=== PATIENT | female | born 1935 | race Caucasian/White ===

== ENCOUNTER 2019-05-04 09:52 | Observation (INO) | payer MEDICARE, BC ==
[2019-05-04] VITALS (14 sets, daily range): BP systolic 101–166; BP diastolic 43–82
[~2019-05-04] VITALS: Ht 149.9 cm; Wt 90.9 kg
[~2019-05-04 09:52] MED LIST: ATOR20TA66 PO; GLIP-126 PO; GLYB-97 PO; LEVO100T46 PO; LISI-232 PO; POTA20TA19 PO
[2019-05-04 12:21] LABS: BASOPHILS % (AUTO) 0.7 % (0-1); EOSINOPHILS # (AUTO) 0.1 X10'3 (0-0.9); EOSINOPHILS % (AUTO) 1.6 % (0-6); HEMATOCRIT 31.2 % (35.0-45.0); HEMOGLOBIN 10.4 g/dl (12.0-16.0); LYMPHOCYTES % (AUTO) 15.2 % (21-51); MEAN CORPUSCULAR HEMOGLOBIN 29.3 PG (27.0-31.0); MEAN CORPUSCULAR HGB CONC 33.4 g/dL (33.0-36.5); MEAN CORPUSCULAR VOLUME 87.6 FL (78-98); MEAN PLATELET VOLUME 8.8 FL (7.4-10.4); MONOCYTES # (AUTO) 0.5 X10'3 (0-0.9); MONOCYTES % (AUTO) 6.9 % (2-12); NEUTROPHILS % (AUTO) 75.6 % (42-75); PLATELET COUNT 216 X10'3 (140-440); RED BLOOD COUNT 3.56 X10'6 (4.20-5.60); RED CELL DISTRIBUTION WIDTH 15.7 % (11.5-14.5); WHITE BLOOD COUNT 6.6 X10'3 (4.5-11.0)
[2019-05-04 12:33] LABS: PARTIAL THROMBOPLASTIN TIME 34 SECONDS (22-32)
[2019-05-04 12:34] LABS: ALANINE AMINOTRANSFERASE 16 U/L (12-78); ALBUMIN 3.3 G/DL (3.4-5.0); ALBUMIN/GLOBULIN RATIO 0.8 (1.1-1.5); ALKALINE PHOSPHATASE 93 IU/L (46-116); ANION GAP 8 (8-16); ASPARTATE AMINO TRANSFERASE 18 U/L (10-37); BILIRUBIN,TOTAL 0.3 MG/DL (0.1-1.0); BLOOD UREA NITROGEN 49 MG/DL (7-18); BUN/CREATININE RATIO 30.1 (6.6-38.0); CHLORIDE 102 MMOL/L (99-107); CREATININE 1.63 MG/DL (0.40-0.90); GLUCOSE 149 MG/DL (70-104); SODIUM 139 MMOL/L (135-145); TOTAL CARBON DIOXIDE 28.6 MMOL/L (24-32); TOTAL PROTEIN 7.2 G/DL (6.4-8.2); eGFR 30 ML/MIN
[2019-05-04] MEDS ORDERED: pantoprazole 40 MG vial IV ONE (12:40)
[2019-05-04 13:29] LABS: CLARITY,URINE SLIGHTLY CLOUDY (Clear); COLOR,URINE YELLOW (Yellow); GLUCOSE, URINE NEGATIVE (Neg); KETONES,URINE NEGATIVE (Neg); LEUKOCYTE ESTERASE ,URINE SMALL (Neg); NITRITES, URINE NEGATIVE (Neg); OCCULT BLOOD,URINE MODERATE (Neg); PH,URINE 5.5 (4.8-8.0); PROTEIN,URINE NEGATIVE (Neg); UROBILINOGEN,URINE 0.2 E.U/dL (0.2-1.0)
[2019-05-04 13:49] LABS: UA COLLECTION TYPE CLN CATCH MIDSTREAM
[2019-05-04 13:53] LABS: SQUAMOUS EPITHELIAL CELL,UR MANY /LPF (FEW)
[2019-05-04] MEDS ORDERED: bisacodyl 10mg suppository rectal RC PRN (14:00)
[2019-05-04] MEDS ORDERED: metoclopramide 5 mg/ml inj IV PRN (14:00)
[2019-05-04] MEDS ORDERED: potassium CL 10mEq/100ml bag 100 ML IV PRN ×2 (14:00)
[2019-05-04] MEDS ORDERED: magnesium 4gm in 100ml NS 100 ML IV PRN (14:00)
[2019-05-04] MEDS ORDERED: acetaminophen 650mg rectal suppository RC PRN (14:00)
[2019-05-04] MEDS ORDERED: ondansetron/PF 4mg/2ml inj IV PRN (14:00)
[2019-05-04] MEDS ORDERED: magnesium hydroxide 30ml (MOM) UD suspension PO PRN (14:00)
[2019-05-04] MEDS ORDERED: acetaminophen 325mg tablet PO PRN ×2 (14:00)
[2019-05-04] MEDS ORDERED: magnesium Cl slow-release 64mg tablet PO PRN (14:00)
[2019-05-04] MEDS ORDERED: mag hydrox/Alum hydrox/simeth 30ml oral suspension PO PRN (14:00)
[2019-05-04] MEDS ORDERED: potassium Cl 20 mEq SR tablet PO PRN ×2 (14:00)
[2019-05-04] MEDS ORDERED: magnesium 2GM in 50ml NS 50 ML IV PRN (14:00)
[2019-05-04 14:03] LABS: BACTERIA,URINE 1+ /HPF (Neg); RENAL CELLS, URINE FEW /HPF; TRANSITIONAL EPI CELLS,URINE FEW /HPF
[2019-05-04 14:04] LABS: RBC,URINE NONE SEEN /HPF (0-2)
[2019-05-04] MEDS: normal saline 1000ml 1,000 ML IV SCH ×2 (14:13→14:14)
--- NOTE | 2019-05-04 14:25 | NUR ---
NPO PER PATIENT SINCE 07:30 WHEN HAD SOLID/FLUIDS.
[2019-05-04] MEDS ORDERED: RIVA20TA PO (15:17)
[2019-05-04] MEDS ORDERED: SOTA80TA PO (15:32)
--- NOTE | 2019-05-04 15:43 | NUR ---
Sabra RN receiving RN for pt was given SBAR report. Questions addressed. Pt will go to in-patient room after EGD which procedure is scheduled at 4pm. GI RN was given SBAR report and notified of pt being Antical for blood in which it can take a longer time for blood bank to determine unit in case patient needs blood transfusion. pt in wheelchair going to GI lab by GI RN.
[2019-05-04] MEDS ORDERED: MIDAZolam 5mg/5ml vial ONE (15:56)
[2019-05-04] MEDS ORDERED: fentaNYL/PF 50MCG/1 ML 2ML syringe ONE (15:56)
[2019-05-04] MEDS ORDERED: LIDOcaine Viscous 15ml cup ONE (15:56)
--- NOTE | 2019-05-04 15:56 | NUR ---
Patient in room ED 1. I have received report from FARIDA Palacios and had the opportunity to ask questions and assume patient care. Per ED RN, GI lab transporting pt for EGD directly from ER. Awaiting pt arrival on unit.
--- NOTE | 2019-05-04 18:33 | NUR ---
Patient in room PCU 3019. I have received report from Sabra. FARIDA and had the opportunity to ask questions and assume patient care.
--- NOTE | 2019-05-04 18:33 | NUR ---
Problems reprioritized. Patient report given, questions answered & plan of care reviewed with FARIDA Gambino. Pt has not arrived to the unit yet from EGD.
[2019-05-04 20:23] LABS: HEMOGLOBIN A1C 6.2 % (4.5-6.2)
[2019-05-04] MEDS ORDERED: temazepam 15mg capsule PO PRN (21:00)
[2019-05-04] MEDS: pantoprazole 40 MG vial IV SCH (22:07)
[2019-05-05 02:00] VITALS: BP 128/50
[2019-05-05] MEDS: normal saline 1000ml 1,000 ML IV SCH (04:18)
[2019-05-05 05:26] LABS: HEMATOCRIT 28.4 % (35.0-45.0); HEMOGLOBIN 9.6 g/dl (12.0-16.0); MEAN CORPUSCULAR HEMOGLOBIN 29.8 PG (27.0-31.0); MEAN CORPUSCULAR HGB CONC 33.7 g/dL (33.0-36.5); MEAN CORPUSCULAR VOLUME 88.4 FL (78-98); MEAN PLATELET VOLUME 9.1 FL (7.4-10.4); PLATELET COUNT 190 X10'3 (140-440); RED BLOOD COUNT 3.22 X10'6 (4.20-5.60); RED CELL DISTRIBUTION WIDTH 15.5 % (11.5-14.5); WHITE BLOOD COUNT 5.1 X10'3 (4.5-11.0)
[2019-05-05 05:38] LABS: ALBUMIN 2.8 G/DL (3.4-5.0); ANION GAP 8 (8-16); BLOOD UREA NITROGEN 42 MG/DL (7-18); CALCIUM 9.6 MG/DL (8.5-10.1); CHLORIDE 106 MMOL/L (99-107); CREATININE 1.45 MG/DL (0.40-0.90); GLUCOSE 57 MG/DL (70-104); MAGNESIUM 1.9 MG/DL (1.5-2.4); SODIUM 141 MMOL/L (135-145); eGFR 34 ML/MIN
[2019-05-05 05:40] LABS: POTASSIUM 4.1 MMOL/L (3.5-5.1)
[2019-05-05 05:43] LABS: PARTIAL THROMBOPLASTIN TIME 31 SECONDS (22-32)
[2019-05-05 06:00] VITALS: BP 126/51
--- NOTE | 2019-05-05 06:26 | NUR ---
Problems reprioritized. Patient report given, questions answered & plan of care reviewed with FARIDA Harris.
--- NOTE | 2019-05-05 06:59 | NUR ---
Patient in room PCU 3019. I have received report from Maki IQBAL and had the opportunity to ask questions and assume patient care. All patient's needs met at this time.
[2019-05-05] MEDS ORDERED: K and/or MAG REPLACEMENT MC SCH (08:00)
[2019-05-05] MEDS ORDERED: PANT-47 PO (08:52)
[2019-05-05 11:00] VITALS: BP 128/56
[2019-05-05] MEDS: pantoprazole 40 MG vial IV SCH (11:14)
[2019-05-05] MEDS ORDERED: pantoprazole 40mg Tablet.DR PO SCH (20:00)
[2019-05-07 11:48] LABS: OCCULT BLOOD STOOL POSITIVE (Neg)
== END 2019-05-05 12:28 | disposition home or self-care (01) ==
LOC: ER 09:52 → ED HOLD 14:00 → PCU 3S 17:27
PROVIDERS: ADMIT Family Medicine; ATTEND Family Medicine
DX: K29.81 Duodenitis with bleeding (principal); R19.5 Other fecal abnormalities; D50.0 Iron deficiency anemia secondary to blood loss (chronic); I48.91 Unspecified atrial fibrillation; E78.5 Hyperlipidemia, unspecified; I12.9 Hypertensive chronic kidney disease with stage 1 through stage 4 chronic kidney disease, or unspecified chronic kidney disease; E11.22 Type 2 diabetes mellitus with diabetic chronic kidney disease; N18.9 Chronic kidney disease, unspecified; E03.9 Hypothyroidism, unspecified; R09.02 Hypoxemia; M10.9 Gout, unspecified; Z85.42 Personal history of malignant neoplasm of other parts of uterus; Z90.710 Acquired absence of both cervix and uterus; Z90.49 Acquired absence of other specified parts of digestive tract; Z99.81 Dependence on supplemental oxygen; Z79.01 Long term (current) use of anticoagulants; Z79.84 Long term (current) use of oral hypoglycemic drugs; Z79.899 Other long term (current) drug therapy
CPT/HCPCS: 36415; 43239; 71045; 80048; 80053; 81001; 82272; 82948; 83036; 83735; 85025; 85027; 85610; 85730; 86870; 86880; 86885; 86900; 86901; 86905; 93005; 96374; 96376; 99284; C9113; G0378; J2250; J3010; J7030; 88305; 99152; A4620

== ENCOUNTER 2019-06-03 10:32 | Emergency (ER) | payer MEDICARE, BC ==
[~2019-06-03] VITALS: Ht 149.9 cm; Wt 89.5 kg
[~2019-06-03 10:32] MED LIST changes: -ATOR20TA66 PO; -GLYB-97 PO; +PANT-47 PO; +RIVA20TA PO; +SOTA80TA PO
[2019-06-03 10:39] VITALS: BP 174/68
[2019-06-03] MEDS ORDERED: PRED20TA PO (12:24)
[2019-06-03] MEDS ORDERED: HYDR-3965 PO (12:24)
== END 2019-06-03 12:40 | disposition home or self-care (01) ==
LOC: ER 10:32
DX: M1A.9XX1 Chronic gout, unspecified, with tophus (tophi) (principal); I48.91 Unspecified atrial fibrillation; E11.9 Type 2 diabetes mellitus without complications; Z90.710 Acquired absence of both cervix and uterus; Z79.899 Other long term (current) drug therapy
CPT/HCPCS: 99283

== ENCOUNTER 2020-01-02 22:51 | Emergency (ER) | payer MEDICARE, BC ==
[~2020-01-02] VITALS: Ht 149.9 cm; Wt 90.0 kg
[2020-01-03 01:04] VITALS: BP 162/70
== END 2020-01-03 01:06 | disposition home or self-care (01) ==
LOC: ER 22:52
DX: R04.0 Epistaxis (principal); I48.91 Unspecified atrial fibrillation; E11.9 Type 2 diabetes mellitus without complications; Z90.710 Acquired absence of both cervix and uterus; Z79.01 Long term (current) use of anticoagulants; Z79.899 Other long term (current) drug therapy
CPT/HCPCS: 99284

== ENCOUNTER 2020-02-12 12:47 | Inpatient (IN) | payer MEDICARE, BC ==
[~2020-02-12] VITALS: Ht 149.9 cm; Wt 91.0 kg
[2020-02-12] MEDS ORDERED: nitroGLYCERIN 0.4mg/hour patch TD ONE (13:00)
[2020-02-12] MEDS ORDERED: lisinopril 10 MG tablet PO ONE (13:10)
[2020-02-12 13:32] LABS: BASOPHILS # (AUTO) 0.1 X10'3 (0-0.2); BASOPHILS % (AUTO) 0.9 % (0-1); EOSINOPHILS # (AUTO) 0.1 X10'3 (0-0.9); EOSINOPHILS % (AUTO) 1.1 % (0-6); HEMATOCRIT 36.5 % (35.0-45.0); HEMOGLOBIN 11.5 g/dl (12.0-16.0); LYMPHOCYTES # (AUTO) 1.1 X10'3 (1.1-4.8); LYMPHOCYTES % (AUTO) 15.4 % (21-51); MEAN CORPUSCULAR HEMOGLOBIN 26.6 PG (27.0-31.0); MEAN CORPUSCULAR HGB CONC 31.5 g/dL (33.0-36.5); MEAN CORPUSCULAR VOLUME 84.4 FL (78-98); MEAN PLATELET VOLUME 9.2 FL (7.4-10.4); MONOCYTES # (AUTO) 0.7 X10'3 (0-0.9); MONOCYTES % (AUTO) 10.2 % (2-12); NEUTROPHILS # (AUTO) 5.2 X10'3 (1.8-7.7); NEUTROPHILS % (AUTO) 72.4 % (42-75); PLATELET COUNT 243 X10'3 (140-440); RED BLOOD COUNT 4.32 X10'6 (4.20-5.60); WHITE BLOOD COUNT 7.2 X10'3 (4.5-11.0)
[2020-02-12 13:43] LABS: PARTIAL THROMBOPLASTIN TIME 47 SECONDS (22-32)
[2020-02-12 13:52] LABS: ALANINE AMINOTRANSFERASE 143 U/L (12-78); ALBUMIN 3.5 G/DL (3.4-5.0); ALBUMIN/GLOBULIN RATIO 1.1 (1.1-1.5); ALKALINE PHOSPHATASE 83 IU/L (46-116); ANION GAP 9 (8-16); ASPARTATE AMINO TRANSFERASE 84 U/L (10-37); BILIRUBIN,TOTAL 0.8 MG/DL (0.1-1.0); BLOOD UREA NITROGEN 31 MG/DL (7-18); BUN/CREATININE RATIO 17.9 (6.6-38.0); CALCIUM 9.7 MG/DL (8.5-10.1); CHLORIDE 103 MMOL/L (99-107); CREATININE 1.73 MG/DL (0.40-0.90); GLUCOSE 75 MG/DL (70-104); MAGNESIUM 1.7 MG/DL (1.5-2.4); POTASSIUM 4.5 MMOL/L (3.5-5.1); SODIUM 136 MMOL/L (135-145); TOTAL PROTEIN 6.7 G/DL (6.4-8.2); eGFR 28 ML/MIN
[2020-02-12] MEDS ORDERED: aspirin 81mg tab.chew PO ONE (14:35)
[2020-02-12] MEDS ORDERED: magnesium 4gm in 100ml NS 100 ML IV PRN (15:00)
[2020-02-12] MEDS ORDERED: HYDROcodone/acetaminophen 5mg/325mg tablet PO PRN (15:00)
[2020-02-12] MEDS ORDERED: acetaminophen 325mg tablet PO PRN ×2 (15:00)
[2020-02-12] MEDS ORDERED: potassium Cl 20 mEq SR tablet PO PRN (15:00)
[2020-02-12] MEDS ORDERED: magnesium 2GM in 50ml NS 50 ML IV PRN (15:00)
[2020-02-12] MEDS ORDERED: magnesium Cl slow-release 64mg tablet PO PRN (15:00)
[2020-02-12] MEDS ORDERED: ondansetron/PF 4mg/2ml inj IV PRN (15:00)
[2020-02-12] MEDS ORDERED: morphine 2 MG/ML inj. syringe IV PRN (15:00)
[2020-02-12] MEDS ORDERED: potassium CL 10mEq/100ml bag 100 ML IV PRN ×2 (15:00)
[2020-02-12] MEDS ORDERED: docusate sod 100mg capsule PO PRN (15:00)
[2020-02-12] MEDS ORDERED: dextrose ORAL solution 15 GM/59 ML bottle PO PRN ×2 (15:05)
[2020-02-12] MEDS ORDERED: MESSAGE TO PHARMACY PO ONE (15:05)
[2020-02-12] MEDS ORDERED: insulin Lispro (HumaLOG) vial - multi-dose SQ SCH (15:05)
[2020-02-12] MEDS ORDERED: glucagon, human recombinant 1mg kit SUBCUT PRN (15:05)
[2020-02-12] MEDS ORDERED: dextrose 50%-water 50ml dispensing syringe IV PRN ×2 (15:05)
[2020-02-12] MEDS: lisinopril 20mg tablet PO SCH (15:30)
--- NOTE | 2020-02-12 16:18 | NUR ---
PAGER ID: [phone] MESSAGE: [id number] RE: PUMA BED 14 HAD 10MG OF LISINOPRIL EARLIER NOW I HAVE AN ORDER FOR 20MG, BP 130/74 HR 68, SHOULD I GIVE?
[2020-02-12] MEDS ORDERED: PANT-47 PO (16:58)
[2020-02-12] MEDS ORDERED: POTA20TA19 PO (16:58)
[2020-02-12 17:03] VITALS: BP 153/88
--- NOTE | 2020-02-12 17:31 | NUR ---
Patient in room MED 310. I have received report from FARIDA Andujar and had the opportunity to ask questions and assume patient care.
[2020-02-12 18:00] VITALS: BP 154/71
--- NOTE | 2020-02-12 18:00 | NUR ---
Patient in room MED 310. I have received report from Traci IQBAL and had the opportunity to ask questions and assume patient care.
--- NOTE | 2020-02-12 18:55 | NUR ---
Problems reprioritized. Patient report given, questions answered & plan of care reviewed with FARIDA Saeed.
[2020-02-12] MEDS: K and/or MAG REPLACEMENT MC SCH (20:00)
[2020-02-12] MEDS: sotalol 80mg tablet PO SCH (20:37)
[2020-02-12] MEDS: rivaroxaban 10mg tablet PO SCH (20:38)
[2020-02-12] MEDS: insulin glargine (Lantus) pen - multi-dose SQ SCH (21:00)
[2020-02-12] MEDS ORDERED: temazepam 15mg capsule PO PRN (21:00)
[2020-02-12] MEDS: furosemide 40mg/4ml inj IV SCH (21:49)
[2020-02-12 22:00] VITALS: BP 164/75
[2020-02-13 02:00] VITALS: BP 160/90
--- NOTE | 2020-02-13 02:21 | NUR ---
MESSAGE: Re: Sophie Friend rm 310. Patient would like medication for her indigestion if possible, Thanks ex [phone]. Darlin
[2020-02-13] MEDS ORDERED: mag hydrox/Alum hydrox/simeth 30ml oral suspension PO ONE (02:40)
[2020-02-13 05:25] LABS: BASOPHILS # (AUTO) 0.1 X10'3 (0-0.2); BASOPHILS % (AUTO) 1.1 % (0-1); EOSINOPHILS # (AUTO) 0.1 X10'3 (0-0.9); EOSINOPHILS % (AUTO) 1.8 % (0-6); HEMATOCRIT 33.8 % (35.0-45.0); HEMOGLOBIN 10.8 g/dl (12.0-16.0); LYMPHOCYTES # (AUTO) 0.9 X10'3 (1.1-4.8); LYMPHOCYTES % (AUTO) 16.8 % (21-51); MEAN CORPUSCULAR HEMOGLOBIN 26.8 PG (27.0-31.0); MEAN CORPUSCULAR HGB CONC 31.9 g/dL (33.0-36.5); MEAN CORPUSCULAR VOLUME 84.2 FL (78-98); MEAN PLATELET VOLUME 9.4 FL (7.4-10.4); MONOCYTES # (AUTO) 0.7 X10'3 (0-0.9); MONOCYTES % (AUTO) 12.3 % (2-12); NEUTROPHILS # (AUTO) 3.7 X10'3 (1.8-7.7); PLATELET COUNT 229 X10'3 (140-440); RED BLOOD COUNT 4.02 X10'6 (4.20-5.60); RED CELL DISTRIBUTION WIDTH 16.6 % (11.5-14.5); WHITE BLOOD COUNT 5.4 X10'3 (4.5-11.0)
[2020-02-13 05:33] LABS: ALANINE AMINOTRANSFERASE 125 U/L (12-78); ALBUMIN 3.2 G/DL (3.4-5.0); ALKALINE PHOSPHATASE 77 IU/L (46-116); ANION GAP 9 (8-16); ASPARTATE AMINO TRANSFERASE 72 U/L (10-37); BILIRUBIN,TOTAL 0.8 MG/DL (0.1-1.0); BLOOD UREA NITROGEN 29 MG/DL (7-18); BUN/CREATININE RATIO 18.2 (6.6-38.0); CALCIUM 9.5 MG/DL (8.5-10.1); CHLORIDE 102 MMOL/L (99-107); CHOL/HDL RATIO 3.1 (0.00-4.99); CHOLESTEROL 141 MG/DL (0-200); CREATININE 1.59 MG/DL (0.40-0.90); GLUCOSE 102 MG/DL (70-104); HDL CHOLESTEROL 45 MG/DL (35-60); LDL CHOLESTEROL 83 MG/DL (50-100); MAGNESIUM 1.6 MG/DL (1.5-2.4); POTASSIUM 3.9 MMOL/L (3.5-5.1); SODIUM 138 MMOL/L (135-145); TOTAL CARBON DIOXIDE 27.2 MMOL/L (24-32); TOTAL PROTEIN 6.3 G/DL (6.4-8.2); TRIGLYCERIDES 97 MG/DL (20-135); eGFR 31 ML/MIN
[2020-02-13 06:00] VITALS: BP 179/69
--- NOTE | 2020-02-13 06:15 | NUR ---
Patient in room MED 310. I have received report from amber Saeed and had the opportunity to ask questions and assume patient care.
--- NOTE | 2020-02-13 06:43 | NUR ---
Problems reprioritized. Patient report given, questions answered & plan of care reviewed with Katarina IQBAL.
[2020-02-13] MEDS: sotalol 80mg tablet PO SCH ×2 (08:00→19:49)
[2020-02-13] MEDS: pantoprazole 40mg Tablet.DR PO SCH (08:14)
[2020-02-13] MEDS: levoTHYROXINE 100mcg tablet PO SCH (08:14)
[2020-02-13] MEDS: lisinopril 20mg tablet PO SCH (08:17)
[2020-02-13] MEDS: furosemide 40mg/4ml inj IV SCH ×2 (08:17→19:45)
[2020-02-13] MEDS: K and/or MAG REPLACEMENT MC SCH ×2 (08:18→19:48)
--- NOTE | 2020-02-13 08:30 | NUR ---
heart rate freq in 50s,betapace oral med held,dr. dan aware
[2020-02-13 10:00] VITALS: BP 150/60
[2020-02-13] MEDS ORDERED: ondansetron 4mg rapidly disintigrating tab PO PRN (13:35)
[2020-02-13 14:00] VITALS: BP 147/50
[2020-02-13 18:00] VITALS: BP 146/60
--- NOTE | 2020-02-13 18:40 | NUR ---
Problems reprioritized. Patient report given, questions answered & plan of care reviewed with amber berman.
--- NOTE | 2020-02-13 18:40 | NUR ---
Patient in room MED 310. I have received report from Katarina IQBAL and had the opportunity to ask questions and assume patient care.
[2020-02-13] MEDS: rivaroxaban 10mg tablet PO SCH (18:49)
[2020-02-13] MEDS: insulin glargine (Lantus) pen - multi-dose SQ SCH (21:00)
[2020-02-13 22:00] VITALS: BP 152/63
[2020-02-14 02:00] VITALS: BP 155/73
[2020-02-14 05:17] LABS: BASOPHILS # (AUTO) 0.1 X10'3 (0-0.2); BASOPHILS % (AUTO) 1.2 % (0-1); EOSINOPHILS # (AUTO) 0.2 X10'3 (0-0.9); EOSINOPHILS % (AUTO) 2.9 % (0-6); HEMATOCRIT 35.1 % (35.0-45.0); LYMPHOCYTES # (AUTO) 1.1 X10'3 (1.1-4.8); LYMPHOCYTES % (AUTO) 19.9 % (21-51); MEAN CORPUSCULAR HEMOGLOBIN 26.4 PG (27.0-31.0); MEAN CORPUSCULAR HGB CONC 31.5 g/dL (33.0-36.5); MEAN CORPUSCULAR VOLUME 83.8 FL (78-98); MONOCYTES # (AUTO) 0.7 X10'3 (0-0.9); MONOCYTES % (AUTO) 12.4 % (2-12); NEUTROPHILS # (AUTO) 3.5 X10'3 (1.8-7.7); NEUTROPHILS % (AUTO) 63.6 % (42-75); PLATELET COUNT 213 X10'3 (140-440); RED BLOOD COUNT 4.19 X10'6 (4.20-5.60); RED CELL DISTRIBUTION WIDTH 17.1 % (11.5-14.5); WHITE BLOOD COUNT 5.5 X10'3 (4.5-11.0)
[2020-02-14 05:35] LABS: ALANINE AMINOTRANSFERASE 100 U/L (12-78); ALBUMIN 3.2 G/DL (3.4-5.0); ALBUMIN/GLOBULIN RATIO 1.1 (1.1-1.5); ALKALINE PHOSPHATASE 74 IU/L (46-116); ANION GAP 8 (8-16); ASPARTATE AMINO TRANSFERASE 48 U/L (10-37); BILIRUBIN,TOTAL 0.8 MG/DL (0.1-1.0); BLOOD UREA NITROGEN 32 MG/DL (7-18); BUN/CREATININE RATIO 18.6 (6.6-38.0); CALCIUM 9.6 MG/DL (8.5-10.1); CHLORIDE 101 MMOL/L (99-107); CREATININE 1.72 MG/DL (0.40-0.90); GLUCOSE 91 MG/DL (70-104); MAGNESIUM 1.5 MG/DL (1.5-2.4); POTASSIUM 3.4 MMOL/L (3.5-5.1); SODIUM 140 MMOL/L (135-145); TOTAL CARBON DIOXIDE 31.1 MMOL/L (24-32); TOTAL PROTEIN 6.2 G/DL (6.4-8.2); eGFR 28 ML/MIN
[2020-02-14 06:00] VITALS: BP 172/66
--- NOTE | 2020-02-14 06:15 | NUR ---
Patient in room MED 310. I have received report from amber Burk and had the opportunity to ask questions and assume patient care.
--- NOTE | 2020-02-14 06:41 | NUR ---
Problems reprioritized. Patient report given, questions answered & plan of care reviewed with Katarina IQBAL.
[2020-02-14] MEDS: K and/or MAG REPLACEMENT MC SCH ×2 (08:00→20:00)
[2020-02-14] MEDS: sotalol 80mg tablet PO SCH (08:00)
[2020-02-14] MEDS: furosemide 40mg/4ml inj IV SCH (08:00)
[2020-02-14] MEDS: levoTHYROXINE 100mcg tablet PO SCH (09:03)
[2020-02-14] MEDS: lisinopril 20mg tablet PO SCH (09:04)
[2020-02-14] MEDS: pantoprazole 40mg Tablet.DR PO SCH (09:04)
[2020-02-14 10:00] VITALS: BP 160/51
[2020-02-14] MEDS: potassium Cl 20 mEq SR tablet PO PRN ×3 (10:46→20:13)
[2020-02-14 14:00] VITALS: BP 115/57
[2020-02-14] MEDS ORDERED: rivaroxaban 20mg tablet PO SCH (15:04)
[2020-02-14] MEDS ORDERED: magnesium Cl slow-release 64mg tablet PO ONE (15:40)
[2020-02-14] MEDS ORDERED: hydrALAZINE 20mg/ml inj. IV PRN (15:50)
[2020-02-14 18:00] VITALS: BP 152/51
--- NOTE | 2020-02-14 18:15 | NUR ---
Problems reprioritized. Patient report given, questions answered & plan of care reviewed with amber Lugo.
[2020-02-14] MEDS: insulin glargine (Lantus) pen - multi-dose SQ SCH (20:54)
[2020-02-14 22:00] VITALS: BP 146/60
[2020-02-15 02:00] VITALS: BP 153/62
--- NOTE | 2020-02-15 02:19 | NUR ---
Patient rated pain at a 9/10. In both shoulders. Pt states its her chronic Fibromyalgia. Pt had tylenol, norco, and morphine available. Educated patient about hydrocodone and morphine. Pt wanted to take the tylenol saying it is what she normally takes at home for it.
[2020-02-15 05:58] LABS: BASOPHILS % (AUTO) 0.9 % (0-1); EOSINOPHILS # (AUTO) 0.2 X10'3 (0-0.9); EOSINOPHILS % (AUTO) 3.5 % (0-6); HEMATOCRIT 35.2 % (35.0-45.0); LYMPHOCYTES # (AUTO) 1.1 X10'3 (1.1-4.8); MEAN CORPUSCULAR HEMOGLOBIN 26.4 PG (27.0-31.0); MEAN CORPUSCULAR HGB CONC 31.4 g/dL (33.0-36.5); MEAN CORPUSCULAR VOLUME 84.1 FL (78-98); MEAN PLATELET VOLUME 8.9 FL (7.4-10.4); MONOCYTES # (AUTO) 0.6 X10'3 (0-0.9); MONOCYTES % (AUTO) 11.7 % (2-12); NEUTROPHILS # (AUTO) 3.6 X10'3 (1.8-7.7); NEUTROPHILS % (AUTO) 64.9 % (42-75); PLATELET COUNT 204 X10'3 (140-440); RED BLOOD COUNT 4.19 X10'6 (4.20-5.60); RED CELL DISTRIBUTION WIDTH 16.9 % (11.5-14.5); WHITE BLOOD COUNT 5.5 X10'3 (4.5-11.0)
[2020-02-15 06:00] VITALS: BP 162/59
[2020-02-15 06:12] LABS: ALANINE AMINOTRANSFERASE 77 U/L (12-78); ALBUMIN 3.2 G/DL (3.4-5.0); ALKALINE PHOSPHATASE 73 IU/L (46-116); ANION GAP 6 (8-16); ASPARTATE AMINO TRANSFERASE 32 U/L (10-37); BILIRUBIN,TOTAL 0.8 MG/DL (0.1-1.0); BLOOD UREA NITROGEN 35 MG/DL (7-18); BUN/CREATININE RATIO 21.2 (6.6-38.0); CALCIUM 9.7 MG/DL (8.5-10.1); CHLORIDE 101 MMOL/L (99-107); CREATININE 1.65 MG/DL (0.40-0.90); GLUCOSE 90 MG/DL (70-104); MAGNESIUM 1.5 MG/DL (1.5-2.4); POTASSIUM 4.1 MMOL/L (3.5-5.1); SODIUM 139 MMOL/L (135-145); TOTAL CARBON DIOXIDE 32.4 MMOL/L (24-32); TOTAL PROTEIN 6.3 G/DL (6.4-8.2); eGFR 30 ML/MIN
--- NOTE | 2020-02-15 06:44 | NUR ---
Problems reprioritized. Patient report given, questions answered & plan of care reviewed with Pat RN.
[2020-02-15] MEDS ORDERED: furosemide 40mg/4ml inj IV SCH (08:00)
[2020-02-15] MEDS: pantoprazole 40mg Tablet.DR PO SCH (08:26)
[2020-02-15] MEDS: lisinopril 20mg tablet PO SCH (08:27)
[2020-02-15] MEDS: levoTHYROXINE 100mcg tablet PO SCH (08:38)
[2020-02-15] MEDS ORDERED: FURO-149 PO (09:36)
[2020-02-15] MEDS ORDERED: LISI-600 PO (09:36)
[2020-02-15 10:00] VITALS: BP 172/71
[2020-02-15 14:00] VITALS: BP 127/67
== END 2020-02-15 15:25 | disposition home health service (06) | DRG 280 ==
LOC: ER 12:48 → ED HOLD 14:56 → MED 3N 16:45
PROVIDERS: ADMIT Internal Medicine; ATTEND Internal Medicine
DX: I13.0 Hypertensive heart and chronic kidney disease with heart failure and stage 1 through stage 4 chronic kidney disease, or unspecified chronic kidney disease (principal); I50.23 Acute on chronic systolic (congestive) heart failure; I21.A1 Myocardial infarction type 2; I25.10 Atherosclerotic heart disease of native coronary artery without angina pectoris; E03.9 Hypothyroidism, unspecified; E11.22 Type 2 diabetes mellitus with diabetic chronic kidney disease; E78.5 Hyperlipidemia, unspecified; M19.90 Unspecified osteoarthritis, unspecified site; R00.1 Bradycardia, unspecified; I27.20 Pulmonary hypertension, unspecified; I48.0 Paroxysmal atrial fibrillation; M10.9 Gout, unspecified; N18.3 Chronic kidney disease, stage 3 (moderate); Z66 Do not resuscitate; Z85.41 Personal history of malignant neoplasm of cervix uteri; Z90.710 Acquired absence of both cervix and uterus; Z79.899 Other long term (current) drug therapy
CPT/HCPCS: 36415; 71045; 76937; 80053; 80061; 82948; 83036; 83735; 83880; 84443; 84484; 85025; 85610; 85730; 87081; 93005; 93308; 97116; 97162; 97530; 99285; G0378; J1815; J1940